=== PATIENT | female | born 1985 | race American Indian/Alaskan Native ===

== ENCOUNTER 2020-04-10 09:43 | Emergency (ER) | payer MEDICAID ==
--- NOTE | 2020-04-10 10:19 | Emergency Department Report ---
Blank Doc - Documentation Documentation: 34-year-old female that presents with left axilla abscess. This initial assessment/diagnostic orders/clinical plan/treatment(s) is/are subject to change based on patient's health status, clinical progression and re- assessment by fellow clinical providers in the ED. Further treatment and workup at subsequent clinical providers discretion. Patient/guardians urged not to elope from the ED as their condition may be serious if not clinically assessed and managed. Initial orders include: 1- Patient sent to [facility] for further evaluation and treatment 2- I/D
[2020-04-10] MEDS ORDERED: LIDOCAINE-MPF (1%) 10 MG/1 ML VIAL 5 ML INFILTRATI ONE (11:07)
[2020-04-10] MEDS ORDERED: oxyCODONE /ACETAMINOPHEN 5-325MG TAB PO ONE (11:13)
--- NOTE | 2020-04-10 11:15 | Emergency Department Report ---
HPI - General Chief Complaint: Skin/Abscess/Foreign Body Time Seen by Provider: 04/10/20 10:05 - HPI HPI: 34-year-old female presents with a 3-day history of a boil to the left armpit. It is tender and swollen. No fever. She has a history of the same thing in the right armpit from about 6 months ago. No bleeding or drainage. She has not taken anything for her symptoms prior to presentation. No past medical history. ED Past Medical Hx - Past Medical History Previous Medical History?: No - Surgical History Past Surgical History?: No - Social History Smoking Status: Never Smoker Substance Use Type: None - Medications Home Medications: Home Medications Medication Instructions Recorded Confirmed Last Taken Type HYDROcodone/APAP 5-325 [[place] 1 each PO Q6HR PRN #8 tablet 04/10/20 Unknown Rx 5/325] Sulfamethoxazole/Trimethoprim 1 each PO BID #14 tablet 04/10/20 Unknown Rx [Bactrim DS TAB] ED Review of Systems ROS: Stated complaint: LEFT ARMPIT BOIL Other details as noted in HPI Comment: All other systems reviewed and negative Constitutional: denies: chills, fever Musculoskeletal: denies: joint swelling, arthralgia Skin: lesions (left axillary abscess) Neurological: denies: numbness, paresthesias Physical Exam - Physical Exam Vital Signs: Vital Signs 04/10/20 09:48 Temperature 99.2 F Pulse Rate 100 H Respiratory 16 Rate Blood Pressure 136/86 [Right] O2 Sat by Pulse 100 Oximetry Physical Exam: GENERAL: The patient is well-developed well-nourished. HENT: Normocephalic. Atraumatic. Patient has moist mucous membranes. EYES: Extraocular motions are intact. NECK: Supple. Trachea is midline. CHEST/LUNGS: Clear to auscultation. There is no respiratory distress noted. HEART/CARDIOVASCULAR: Regular. There is no tachycardia. SKIN: Skin is warm and dry. There is a left tender and fluctuant axillary abscess consistent with hidradenitis suppurativa. No surrounding erythema. No current bleeding or discharge. NEURO: The patient is awake, alert, and oriented. The patient is cooperative. Normal speech. MUSCULOSKELETAL: There is tenderness to palpation to the left axilla where the patient has an abscess. ED Course Vital Signs 04/10/20 09:48 Temperature 99.2 F Pulse Rate 100 H Respiratory 16 Rate Blood Pressure 136/86 [Right] O2 Sat by Pulse 100 Oximetry - I & D Left Arm Type of Procedure: Simple Site: left axilla Blade Size: 11 I & D Procedure: betadine prep, sterile drapes applied, sterile dressing applied ED Medical Decision Making - Medical Decision Making Patient presents with a left axillary abscess or hidradenitis suppurtiva. An incision and drainage was performed with about 8 cc of purulent return. There was not enough room for packing to be placed. The patient was placed on antibiotics and given a prescription for pain medication. She will continue to use warm compresses to try and express any further infection. She will return to the ER with any worsening of her symptoms or any acute distress. Critical Care Time: No Critical care attestation.: If time is entered above; I have spent that time in minutes in the direct care of this critically ill patient, excluding procedure time. ED Disposition Clinical Impression: Hidradenitis suppurativa of left axilla Disposition: TO HOME OR SELFCARE Is pt being admited?: No Condition: Stable Instructions: Abscess Incision and Drainage (ED), Abscess (ED) Additional Instructions: Please follow-up with a primary care physician in the next few days. Use warm compresses to try and express any further infection from the abscess. Take the antibiotics as prescribed. Return to the emergency department with any worsening of your symptoms or any acute distress. You have been prescribed a medication that is sedating and therefore should not be taken prior to driving, working, and responsible for children and in no way should be mixed with alcohol of any quantity. Prescriptions: Sulfamethoxazole/Trimethoprim [Bactrim DS TAB] 1 each PO BID #14 tablet HYDROcodone/APAP 5-325 [[place] 5/325] 1 each PO Q6HR PRN #8 tablet PRN Reason: Pain Referrals: PRIMARY CARE, [Primary Care Provider] - 2-3 Days Forms: Work/School Release Form(ED) Time of Disposition: 11:31
[2020-04-10 13:57] VITALS: BP 136/86
== END 2020-04-10 12:07 | disposition home or self-care (01) ==
LOC: ED 09:43
DX: L73.2 Hidradenitis suppurativa (principal); L02.412 Cutaneous abscess of left axilla; Z79.899 Other long term (current) drug therapy
CPT/HCPCS: 99282

== ENCOUNTER 2020-07-18 23:21 | Emergency (ER) | payer MEDICAID ==
[2020-07-19 00:45] VITALS: BP 135/84
[2020-07-19] MEDS ORDERED: diphenhydrAMINE 25 MG CAP PO ONE (02:45)
[2020-07-19] MEDS ORDERED: ACETAMINOPHEN 500 MG TAB PO ONE (02:45)
[2020-07-19] MEDS ORDERED: dexAMETHasone 20 MG/5 ML VIAL IM ONE (02:45)
[2020-07-19] MEDS ORDERED: METOCLOPRAMIDE 10 MG TAB PO ONE (02:45)
--- NOTE | 2020-07-19 03:05 | Emergency Department Report ---
ED Headache HPI - General Chief Complaint: Headache Stated Complaint: HEADACHE/RT ARM PAIN Time Seen by Provider: 07/19/20 02:34 - History of Present Illness Initial Comments: Patient is a 34-year-old female with a history of chronic migraine headaches who presents for headache for the past 3 days. Patient is pending follow-up with PCP however appointment is 1 week away. Patient was treated 10 days ago in ED and prescribed Fioricet which she states works for her headaches but she is out of medication. Headache is rated at 5/10 frontal radiating to sinus with pressure. There is no fevers or chills. This is usual location and duration and intensity of her headaches. There is no nausea vomiting. No photophobia no dizziness or lightheadedness there is been no fever or chills. Symptoms are exacerbated by activity and movement. Symptoms are relieved by Fioricet as needed. Allergies/Adverse Reactions: Allergies No Known Allergies Allergy (Unverified 04/10/20 09:47) Home Medications: Ambulatory Orders HYDROcodone/APAP 5-325 [[place] 5/325] 1 each PO Q6HR PRN #8 tablet 04/10/20 Sulfamethoxazole/Trimethoprim [Bactrim DS TAB] 1 each PO BID #14 tablet 04/10/20 Amoxicillin [Trimox CAP] 500 mg PO Q8H #30 capsule 07/07/20 Benzonatate [Tessalon Perles] 100 mg PO Q8HR #30 capsule 07/07/20 Ibuprofen [Motrin] 600 mg PO Q8H PRN #30 tablet 07/07/20 methylPREDNISolone [Medrol 4MG DOSEPAK (21 tabs)] 4 mg PO DAILY #21 tab.ds.pk 07/07/20 Butalb/Acetamin/Caff 50-325-40 [Fioricet 50-325-40] 1 - 2 tab PO Q6HR PRN #12 tab 07/19/20 Metoclopramide [Reglan] 10 mg PO ACHS PRN #30 tablet 07/19/20 diphenhydrAMINE [Benadryl CAP] 25 mg PO Q8HR PRN #30 capsule 07/19/20 ED Review of Systems ROS: Stated complaint: HEADACHE/RT ARM PAIN Other details as noted in HPI Constitutional: denies: chills, fever Eyes: denies: eye pain, eye discharge, vision change ENT: as per HPI. denies: ear pain, throat pain, dental pain, congestion Respiratory: denies: cough, shortness of breath, wheezing Cardiovascular: denies: chest pain, palpitations Endocrine: no symptoms reported Gastrointestinal: denies: abdominal pain, nausea, diarrhea Genitourinary: as per HPI Musculoskeletal: denies: back pain, joint swelling, arthralgia Skin: denies: rash, lesions Neurological: headache. denies: weakness, numbness, paresthesias, confusion, vertigo Psychiatric: denies: anxiety, depression Hematological/Lymphatic: denies: easy bleeding, easy bruising ED Past Medical Hx - Past Medical History Previous Medical History?: Yes Hx Headaches / Migraines: Yes - Surgical History Past Surgical History?: No - Social History Smoking Status: Never Smoker Substance Use Type: None - Medications Home Medications: Home Medications Medication Instructions Recorded Confirmed Last Taken Type HYDROcodone/APAP 5-325 [[place] 1 each PO Q6HR PRN #8 tablet 04/10/20 Unknown Rx 5/325] Sulfamethoxazole/Trimethoprim 1 each PO BID #14 tablet 04/10/20 Unknown Rx [Bactrim DS TAB] Amoxicillin [Trimox CAP] 500 mg PO Q8H #30 capsule 07/07/20 Unknown Rx Benzonatate [Tessalon Perles] 100 mg PO Q8HR #30 capsule 07/07/20 Unknown Rx Ibuprofen [Motrin] 600 mg PO Q8H PRN #30 tablet 07/07/20 Unknown Rx methylPREDNISolone [Medrol 4MG 4 mg PO DAILY #21 tab.ds.pk 07/07/20 Unknown Rx DOSEPAK (21 tabs)] Butalb/Acetamin/Caff 50-325-40 1 - 2 tab PO Q6HR PRN #12 tab 07/19/20 Unknown Rx [Fioricet 50-325-40] Metoclopramide [Reglan] 10 mg PO ACHS PRN #30 tablet 07/19/20 Unknown Rx diphenhydrAMINE [Benadryl CAP] 25 mg PO Q8HR PRN #30 capsule 07/19/20 Unknown Rx ED Physical Exam - General Limitations: No Limitations General appearance: alert, in no apparent distress - Head Head exam: Present: normocephalic, normal inspection - Eye Eye exam: Present: normal appearance, PERRL, EOMI Pupils: Present: normal accommodation - ENT ENT exam: Present: normal orophraynx, mucous membranes moist, TM's normal bilaterally, normal external ear exam - Neck Neck exam: Present: normal inspection, full ROM. Absent: tenderness, meningismus, lymphadenopathy - Respiratory Respiratory exam: Present: normal lung sounds bilaterally. Absent: respiratory distress, wheezes, stridor, chest wall tenderness - Cardiovascular Cardiovascular Exam: Present: regular rate, normal rhythm, normal heart sounds. Absent: systolic murmur, diastolic murmur, rubs, gallop - GI/Abdominal GI/Abdominal exam: Present: soft, normal bowel sounds - Rectal Rectal exam: Present: deferred - Extremities Exam Extremities exam: Present: normal inspection, full ROM. Absent: tenderness - Back Exam Back exam: Present: normal inspection, full ROM. Absent: tenderness, CVA tenderness (R), CVA tenderness (L) - Neurological Exam Neurological exam: Present: alert, oriented X3, CN II-XII intact, normal gait, reflexes normal. Absent: motor sensory deficit - Expanded Neurological Exam Expanded Patient oriented to: Present: person, place, time Speech: Present: fluid speech Cranial nerves: EOM's Intact: Normal Cerebellar function: [place]: Normal Motor strength exam: RUE: 5, LUE: 5, RLE: 5, LLE: 5 DTR: ankle (R): 2+, ankle (L): 2+ Best Eye Response ([place]): (4) open spontaneously Best Motor Response ([place]): (6) obeys commands Best Verbal Response ([place]): (5) oriented [place] Total: 15 - Psychiatric Psychiatric exam: Present: normal affect, normal mood - Skin Skin exam: Present: warm, dry, intact, normal color. Absent: rash ED Course Vital Signs 07/19/20 00:29 Temperature 98.1 F Pulse Rate 82 Respiratory 12 Rate Blood Pressure 135/84 O2 Sat by Pulse 100 Oximetry ED Medical Decision Making - Medical Decision Making This is a acute on chronic headache , usual location and intensity, pain is improved with medications given in ed, plan refill fioricet, follow up with pcp and neurology as previously scheduled, pt verbalized agreement and understanding of discharge plan. Critical care attestation.: If time is entered above; I have spent that time in minutes in the direct care of this critically ill patient, excluding procedure time. ED Disposition Clinical Impression: Headache Qualifiers: Headache type: unspecified Headache chronicity pattern: acute headache Intractability: not intractable Qualified Code(s): R51 - Headache Disposition: DC-01 TO HOME OR SELFCARE Is pt being admited?: No Does the pt Need Aspirin: No Condition: Stable Instructions: Acute Headache (ED) Additional Instructions: take medication as prescribed. Prescriptions: diphenhydrAMINE [Benadryl CAP] 25 mg PO Q8HR PRN #30 capsule PRN Reason: Headache Butalb/Acetamin/Caff 50-325-40 [Fioricet 50-325-40] 1 - 2 tab PO Q6HR PRN #12 tab PRN Reason: Headache Metoclopramide [Reglan] 10 mg PO ACHS PRN #30 tablet PRN Reason: Headache Referrals: NIKKO HOLLINS MD [Staff Physician] - 3-5 Days PAXTON CHRIS MD [Referring] - 3-5 Days Forms: Work/School Release Form(ED) Time of Disposition: 03:13
== END 2020-07-19 03:40 | disposition home or self-care (01) ==
LOC: ED 23:21
DX: R51 Headache (principal); Z98.890 Other specified postprocedural states; Z79.899 Other long term (current) drug therapy
CPT/HCPCS: 96372; 99282; J1100

== ENCOUNTER 2020-12-18 03:05 | Emergency (ER) | payer MEDICAID ==
[2020-12-18 03:23] VITALS: BP 95/71
--- NOTE | 2020-12-18 03:25 | Emergency Department Report ---
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 Patient denies fall injury or trauma. However pain is described as burning tingling rated at 4/10. Pain is exacerbated by lifting or reaching there is no numbness or paralysis. Pain has awaken patient from sleep for the past 2 days. - Related Data Previous Rx's Medication Instructions Recorded Last Taken Type HYDROcodone/APAP 5-325 [[place] 1 each PO Q6HR PRN #8 tablet 04/10/20 Unknown Rx 5/325] Sulfamethoxazole/Trimethoprim 1 each PO BID #14 tablet 04/10/20 Unknown Rx [Bactrim DS TAB] Amoxicillin [Trimox CAP] 500 mg PO Q8H #30 capsule 07/07/20 Unknown Rx Benzonatate [Tessalon Perles] 100 mg PO Q8HR #30 capsule 07/07/20 Unknown Rx Ibuprofen [Motrin] 600 mg PO Q8H PRN #30 tablet 07/07/20 Unknown Rx methylPREDNISolone [Medrol 4MG 4 mg PO DAILY #21 tab.ds.pk 07/07/20 Unknown Rx DOSEPAK (21 tabs)] Butalb/Acetamin/Caff 50-325-40 1 - 2 tab PO Q6HR PRN #12 tab 07/19/20 Unknown Rx [Fioricet 50-325-40] Metoclopramide [Reglan] 10 mg PO ACHS PRN #30 tablet 07/19/20 Unknown Rx diphenhydrAMINE [Benadryl CAP] 25 mg PO Q8HR PRN #30 capsule 07/19/20 Unknown Rx Cyclobenzaprine HCl [Flexeril 5 MG 10 mg PO TID PRN #30 tab 12/18/20 Unknown Rx TAB] Menthol/Camphor [[place] 1 applicatio TP QID PRN #1 tube 12/18/20 Unknown Rx Ointment] Naproxen 500 mg PO BID PRN #30 tablet 12/18/20 Unknown Rx Allergies Allergy/AdvReac Type Severity Reaction Status Date / Time No Known Allergies Allergy Verified 12/18/20 03:18 ED Review of Systems ROS: Stated complaint: RIGHT ARM PAIN Other details as noted in HPI Constitutional: denies: chills, fever Eyes: denies: eye pain, eye discharge, vision change ENT: denies: ear pain, throat pain Respiratory: denies: cough, shortness of breath, wheezing Cardiovascular: denies: chest pain, palpitations Endocrine: no symptoms reported Gastrointestinal: denies: abdominal pain, nausea, diarrhea Genitourinary: denies: urgency, dysuria, discharge Musculoskeletal: myalgia, other (neck pain ) Skin: denies: rash, lesions Neurological: denies: headache, weakness, paresthesias Psychiatric: denies: anxiety, depression Hematological/Lymphatic: as per HPI ED Past Medical Hx - Past Medical History Previous Medical History?: Yes Hx Headaches / Migraines: Yes - Surgical History Past Surgical History?: No - Social History Smoking Status: Never Smoker Substance Use Type: None - Medications Home Medications: Home Medications Medication Instructions Recorded Confirmed Last Taken Type HYDROcodone/APAP 5-325 [[place] 1 each PO Q6HR PRN #8 tablet 04/10/20 Unknown Rx 5/325] Sulfamethoxazole/Trimethoprim 1 each PO BID #14 tablet 04/10/20 Unknown Rx [Bactrim DS TAB] Amoxicillin [Trimox CAP] 500 mg PO Q8H #30 capsule 07/07/20 Unknown Rx Benzonatate [Tessalon Perles] 100 mg PO Q8HR #30 capsule 07/07/20 Unknown Rx Ibuprofen [Motrin] 600 mg PO Q8H PRN #30 tablet 07/07/20 Unknown Rx methylPREDNISolone [Medrol 4MG 4 mg PO DAILY #21 tab.ds.pk 07/07/20 Unknown Rx DOSEPAK (21 tabs)] Butalb/Acetamin/Caff 50-325-40 1 - 2 tab PO Q6HR PRN #12 tab 07/19/20 Unknown Rx [Fioricet 50-325-40] Metoclopramide [Reglan] 10 mg PO ACHS PRN #30 tablet 07/19/20 Unknown Rx diphenhydrAMINE [Benadryl CAP] 25 mg PO Q8HR PRN #30 capsule 07/19/20 Unknown Rx Cyclobenzaprine HCl [Flexeril 5 MG 10 mg PO TID PRN #30 tab 12/18/20 Unknown Rx TAB] Menthol/Camphor [[place] 1 applicatio TP QID PRN #1 tube 12/18/20 Unknown Rx Ointment] Naproxen 500 mg PO BID PRN #30 tablet 12/18/20 Unknown Rx ED Physical Exam - General Limitations: No Limitations General appearance: alert, in no apparent distress - Head Head exam: Present: atraumatic, normocephalic - Eye Eye exam: Present: PERRL, EOMI Pupils: Present: normal accommodation - ENT ENT exam: Present: mucous membranes moist - Neck Neck exam: Present: tenderness (right posterior lateral neck muscle tenderness to deep palpation no posterior vertebral point tenderness, rom intact and unrestricted to all sánchez ), full ROM - Respiratory Respiratory exam: Present: normal lung sounds bilaterally, chest wall tenderness. Absent: respiratory distress, wheezes, stridor - Cardiovascular Cardiovascular Exam: Present: regular rate, normal rhythm, normal heart sounds. Absent: systolic murmur, diastolic murmur, rubs, gallop - GI/Abdominal GI/Abdominal exam: Present: soft, normal bowel sounds. Absent: distended, tenderness, guarding, rebound, rigid, bruit, hernia - Rectal Rectal exam: Present: deferred - Extremities Exam Extremities exam: Present: normal inspection, full ROM, normal capillary refill - Expanded Upper Extremity Exam Right Shoulder Exam: Present: normal inspection, full ROM. Absent: tenderness Upper Arm exam: Present: normal inspection, full ROM. Absent: tenderness, swelling, crepidus Elbow exam: Present: full ROM, pain w/ pronation/supination. Absent: tenderness, swelling, ecchymosis, crepidus, tenderness over radial head Forearm Wrist exam: Present: full ROM. Absent: tenderness, swelling Hand Wrist exam: Present: normal inspection, full ROM. Absent: tenderness, swelling Neuro motor exam: Present: wrist extension intact, thumb opposition intact, thumb IP flexion intact, thumb adduction intact, fingers 2-5 abduction intact Neurosensory exam: Present: radial nerve intact - Back Exam Back exam: Present: normal inspection, full ROM. Absent: tenderness, vertebral tenderness - Neurological Exam Neurological exam: Present: alert, oriented X3, CN II-XII intact, normal gait, reflexes normal. Absent: motor sensory deficit - Expanded Neurological Exam Expanded Patient oriented to: Present: person, place, time Speech: Present: fluid speech Sensory exam: Upper Extremity Light Touch: Normal, Upper Extremity Pin Prick: Normal, Upper Extremity Temperature: Normal Motor strength exam: RUE: 5, LUE: 5, RLE: 5, LLE: 5 DTR: bicep (R): 2+, bicep (L): 2+ Best Eye Response ([place]): (4) open spontaneously Best Motor Response ([place]): (6) obeys commands Best Verbal Response ([place]): (5) oriented [place] Total: 15 - Psychiatric Psychiatric exam: Present: normal affect, normal mood - Skin Skin exam: Present: warm, dry, intact, normal color. Absent: rash ED Medical Decision Making - Medical Decision Making this is an neck muscle strain, plan, Nsaids, muscle relaxant, and analgesic balm, neck and shoulder exercises. pt will follow up with pcp in 2-3 days. pt verbalized agreement and understanding of discharge plan. Critical care attestation.: If time is entered above; I have spent that time in minutes in the direct care of this critically ill patient, excluding procedure time. ED Disposition Clinical Impression: Neck muscle strain Qualifiers: Encounter type: initial encounter Qualified Code(s): S16.1XXA - Strain of muscle, fascia and tendon at neck level, initial encounter Disposition: TO HOME OR SELFCARE Is pt being admited?: No Does the pt Need Aspirin: No Condition: Stable Instructions: Cervical Strain and Sprain Rehab-SportsMed Additional Instructions: use moist heat therapy as directed Prescriptions: Cyclobenzaprine HCl [Flexeril 5 MG TAB] 10 mg PO TID PRN #30 tab PRN Reason: Muscle Spasm Naproxen 500 mg PO BID PRN #30 tablet PRN Reason: Pain Menthol/Camphor [[place] Ointment] 1 applicatio TP QID PRN #1 tube PRN Reason: pain Referrals: PRIMARY CARE, [Primary Care Provider] - 3-5 Days ARNOLDO METZ MD [Staff Physician] - 3-5 Days Forms: Work/School Release Form(ED) Time of Disposition: 03:38
== END 2020-12-18 04:00 | disposition home or self-care (01) ==
LOC: ED 03:05
DX: S16.1XXA Strain of muscle, fascia and tendon at neck level, initial encounter (principal); G43.909 Migraine, unspecified, not intractable, without status migrainosus; Z79.899 Other long term (current) drug therapy; X58.XXXA Exposure to other specified factors, initial encounter; Y93.89 Activity, other specified; Y92.89 Other specified places as the place of occurrence of the external cause; Y99.8 Other external cause status
CPT/HCPCS: 99282

== ENCOUNTER 2021-04-10 04:09 | Emergency (ER) | payer MEDICAID ==
[2021-04-10 04:34] VITALS: BP 122/79
[2021-04-10 04:57] LABS: Basophils % (Auto) 0.6 % (0.0-1.8); Eosinophils # (Auto) 0.2 K/mm3 (0.0-0.4); Eosinophils % (Auto) 2.4 % (0.0-4.3); Hematocrit 40.7 % (30.3-42.9); Hemoglobin 14.2 gm/dl (10.1-14.3); Lymphocytes # (Auto) 2.8 K/mm3 (1.2-5.4); Lymphocytes % (Auto) 44.7 % (13.4-35.0); Mean Corpuscular HGB Conc 35 % (30-34); Mean Corpuscular Volume 103 fl (79-97); Monocytes # (Auto) 0.6 K/mm3 (0.0-0.8); Monocytes % (Auto) 9.4 % (0.0-7.3); Platelet Count 267 K/mm3 (140-440); Red Blood Count 3.94 M/mm3 (3.65-5.03); Red Cell Distribution Width 13.1 % (13.2-15.2)
[2021-04-10 05:28] LABS: Alanine Aminotransferase 20 units/L (7-56); Albumin 4.7 g/dL (3.9-5); Blood Urea Nitrogen 17 mg/dL (7-17); Calcium 9.7 mg/dL (8.4-10.2); Hemolysis Index 3
[2021-04-10 05:29] LABS: BUN/Creatinine Ratio 24
[2021-04-10] MEDS ORDERED: HYDROcodone/ACETAMINOPHEN 5-325 MG TAB PO STA (06:07)
--- NOTE | 2021-04-10 06:23 | Emergency Department Report ---
ED General Adult HPI - General Chief complaint: Headache Stated complaint: EAR/HEADACHE/COLD SX Time Seen by Provider: 04/10/21 05:48 Source: patient Mode of arrival: Ambulatory Limitations: No Limitations - History of Present Illness Initial comments: 35-year-old -[place] female with past medical history of migraine presents emerged department complaining of a few week history of episodic headaches off and on associated with dull throbbing pain but no presyncope or or blurred vision occasional scotomas noted. She also been experiencing cough and and congestion with scant mucoid mucus production and pain radiating through to her back in a wheezy type sensation. -: Gradual Location: head, chest, back Radiation: non-radiation Quality: aching Consistency: constant Improves with: none Associated Symptoms: cough, nausea/vomiting (Nausea but no vomiting). denies: fever/chills, loss of appetite, malaise, rash, syncope, weakness Treatments Prior to Arrival: none - Related Data Previous Rx's Medication Instructions Recorded Last Taken Type HYDROcodone/APAP 5-325 [[place] 1 each PO Q6HR PRN #8 tablet 04/10/20 Unknown Rx 5/325] Sulfamethoxazole/Trimethoprim 1 each PO BID #14 tablet 04/10/20 Unknown Rx [Bactrim DS TAB] Amoxicillin [Trimox CAP] 500 mg PO Q8H #30 capsule 07/07/20 Unknown Rx Benzonatate [Tessalon Perles] 100 mg PO Q8HR #30 capsule 07/07/20 Unknown Rx Ibuprofen [Motrin] 600 mg PO Q8H PRN #30 tablet 07/07/20 Unknown Rx methylPREDNISolone [Medrol 4MG 4 mg PO DAILY #21 tab.ds.pk 07/07/20 Unknown Rx DOSEPAK (21 tabs)] Butalb/Acetamin/Caff 50-325-40 1 - 2 tab PO Q6HR PRN #12 tab 07/19/20 Unknown Rx [Fioricet 50-325-40] Metoclopramide [Reglan] 10 mg PO ACHS PRN #30 tablet 07/19/20 Unknown Rx diphenhydrAMINE [Benadryl CAP] 25 mg PO Q8HR PRN #30 capsule 07/19/20 Unknown Rx Cyclobenzaprine HCl [Flexeril 5 MG 10 mg PO TID PRN #30 tab 12/18/20 Unknown Rx TAB] Menthol/Camphor [Start [place] 1 applicatio TP QID PRN #1 tube 12/18/20 Unknown Rx Ointment] Naproxen 500 mg PO BID PRN #30 tablet 12/18/20 Unknown Rx Albuterol Mdi (or & Nicu Only) 2 puff IH QID PRN #1 inhalation 04/10/21 Unknown Rx [ProAir HFA Inhaler] Benzonatate [Tessalon Perles] 100 mg PO Q8HR #20 capsule 04/10/21 Unknown Rx predniSONE [Deltasone] 50 mg PO QDAY #5 tab 04/10/21 Unknown Rx Allergies Allergy/AdvReac Type Severity Reaction Status Date / Time No Known Allergies Allergy Verified 04/10/21 04:30 ED Review of Systems ROS: Stated complaint: EAR/HEADACHE/COLD SX Other details as noted in HPI Comment: All other systems reviewed and negative ED Past Medical Hx - Past Medical History Previous Medical History?: No Hx Headaches / Migraines: Yes - Surgical History Past Surgical History?: No - Social History Smoking Status: Never Smoker Substance Use Type: None - Medications Home Medications: Home Medications Medication Instructions Recorded Confirmed Last Taken Type HYDROcodone/APAP 5-325 [[place] 1 each PO Q6HR PRN #8 tablet 04/10/20 Unknown Rx 5/325] Sulfamethoxazole/Trimethoprim 1 each PO BID #14 tablet 04/10/20 Unknown Rx [Bactrim DS TAB] Amoxicillin [Trimox CAP] 500 mg PO Q8H #30 capsule 07/07/20 Unknown Rx Benzonatate [Tessalon Perles] 100 mg PO Q8HR #30 capsule 07/07/20 Unknown Rx Ibuprofen [Motrin] 600 mg PO Q8H PRN #30 tablet 07/07/20 Unknown Rx methylPREDNISolone [Medrol 4MG 4 mg PO DAILY #21 tab.ds.pk 07/07/20 Unknown Rx DOSEPAK (21 tabs)] Butalb/Acetamin/Caff 50-325-40 1 - 2 tab PO Q6HR PRN #12 tab 07/19/20 Unknown Rx [Fioricet 50-325-40] Metoclopramide [Reglan] 10 mg PO ACHS PRN #30 tablet 07/19/20 Unknown Rx diphenhydrAMINE [Benadryl CAP] 25 mg PO Q8HR PRN #30 capsule 07/19/20 Unknown Rx Cyclobenzaprine HCl [Flexeril 5 MG 10 mg PO TID PRN #30 tab 12/18/20 Unknown Rx TAB] Menthol/Camphor [Start [place] 1 applicatio TP QID PRN #1 tube 12/18/20 Unknown Rx Ointment] Naproxen 500 mg PO BID PRN #30 tablet 12/18/20 Unknown Rx Albuterol Mdi (or & Nicu Only) 2 puff IH QID PRN #1 inhalation 04/10/21 Unknown Rx [ProAir HFA Inhaler] Benzonatate [Tessalon Perles] 100 mg PO Q8HR #20 capsule 04/10/21 Unknown Rx predniSONE [Deltasone] 50 mg PO QDAY #5 tab 04/10/21 Unknown Rx ED Physical Exam - General Limitations: No Limitations General appearance: alert, in no apparent distress - Head Head exam: Present: atraumatic, normocephalic - Eye Eye exam: Present: normal appearance, PERRL, EOMI Pupils: Present: normal accommodation - ENT ENT exam: Present: mucous membranes moist, other (Nasal congestion bilaterally clear with some swelling to the left turbinate.) - Neck Neck exam: Present: normal inspection, full ROM - Respiratory Respiratory exam: Present: normal lung sounds bilaterally, rhonchi. Absent: respiratory distress - Cardiovascular Cardiovascular Exam: Present: regular rate, normal rhythm. Absent: systolic murmur, diastolic murmur, rubs, gallop - GI/Abdominal GI/Abdominal exam: Present: soft, normal bowel sounds - Extremities Exam Extremities exam: Present: normal inspection, normal capillary refill - Back Exam Back exam: Present: normal inspection. Absent: CVA tenderness (R), CVA tenderness (L) - Neurological Exam Neurological exam: Present: alert, oriented X3, CN II-XII intact - Psychiatric Psychiatric exam: Present: normal affect, normal mood - Skin Skin exam: Present: warm, dry, intact, normal color. Absent: rash ED Course Vital Signs 04/10/21 04:33 Temperature 99.1 F Pulse Rate 104 H Respiratory 18 Rate Blood Pressure 122/79 O2 Sat by Pulse 100 Oximetry ED Medical Decision Making - Lab Data Result diagrams: 04/10/21 04:37 04/10/21 04:37 - Radiology Data Radiology results: report reviewed No acute processes - Medical Decision Making Cough This patient presents with acute cough, most consistent with bronchitis. Differential diagnosis includes bronchitis, pneumonia, asthma, hyperreactive airway disease, sinusitis. Presentation not consistent with acute bacterial pneumonia, influenza, asthma, transient airway hyperresponsiveness. Presentation not consistent with chronic causes of cough (including GERD, asthma, postnasal discharge, medication side effect, CHF, lung cancer or mass). Plan: Normal CXR, supportive care, reassess Headache this patient presents with a headache most consistent with general headache. Differential diagnosis includes migraine versus tension type headache. No heada kane red flags. Neurologic exam without evidence of meningismus, focal neurologic findings.Based on the patient's history and physical there is very low clinical suspicion for significant intracranial pathology. The headache was NOT sudden onset, NOT maximal at onset, there are NO neurologic findings, the patient does NOT have a fever, the patient does NOT have any jaw claudication, the patient does NOT endorse a clotting disorder, patient DENIES any trauma or eye pain and the headache is NOT associated with dizziness or ataxia. Presentation not consistent with acute intracranial bleed to include SAH (lack of risk factors, headache history). Presentation not consistent with acute SPLITTING MACHINE [employer]EDER infection to include meningitis or brain abscess, Temporal arteritis unlikely, as is acute angle closure glaucoma given history and physical findings. Presentation not consistent with other acute, emergent causes of headache at this time. Plan to treat symptomatically with pain medication. No indication for imaging/LP at this time. Plan: pain medication, , serial reassessment Critical care attestation.: If time is entered above; I have spent that time in minutes in the direct care of this critically ill patient, excluding procedure time. ED Disposition Clinical Impression: Cephalalgia, Bronchitis Disposition: DC-01 TO HOME OR SELFCARE Is pt being admited?: No Does the pt Need Aspirin: No Condition: Stable Instructions: How to Use a Metered Dose Inhaler, Upper Respiratory Infection, Adult, [id number], Migraine Headache, Acute Bronchitis, Adult, Chronic Bronchitis (ED) Prescriptions: predniSONE [Deltasone] 50 mg PO QDAY #5 tab Albuterol Mdi (or & Nicu Only) [ProAir HFA Inhaler] 2 puff IH QID PRN #1 inhalation PRN Reason: Shortness Of Breath Benzonatate [Tessalon Perles] 100 mg PO Q8HR #20 capsule Referrals: PRIMARY CARE, [Primary Care Provider] - 3-5 Days [facility] [Provider Group] - 3-5 Days
--- NOTE | 2021-04-10 06:26 | XRay Report ---
CHEST 2 VIEWS INDICATION / CLINICAL INFORMATION: cough and sob. COMPARISON: 07/07/2020 FINDINGS: SUPPORT DEVICES: None. HEART / MEDIASTINUM: No significant abnormality. LUNGS / PLEURA: No significant pulmonary or pleural abnormality. No pneumothorax. ADDITIONAL FINDINGS: No significant additional findings. IMPRESSION: 1. No acute findings. No interval change. Signer Name: Abigail Doshi MD Signed: 04/10/2021 6:22 AM Workstation Name: [id number]
[2021-04-10 06:52] LABS: Bilirubin,Urine NEG (Negative); Blood,Urine SM (Negative); Color,Urine Yellow (Yellow); Protein,Urine <15 mg/dL mg/dL (Negative); Urobilinogen,Urine < 2.0 mg/dL (<2.0)
== END 2021-04-10 06:43 | disposition home or self-care (01) ==
LOC: ED 04:09
DX: J40 Bronchitis, not specified as acute or chronic (principal); R51.9 Headache, unspecified; Z79.899 Other long term (current) drug therapy
CPT/HCPCS: 36415; 71046; 80053; 81001; 85025

== ENCOUNTER 2021-04-26 04:35 | Emergency (ER) | payer MEDICAID ==
[2021-04-26 05:34] VITALS: BP 121/71
--- NOTE | 2021-04-26 06:25 | Emergency Department Report ---
HPI - General Chief Complaint: Abdominal Pain Time Seen by Provider: 04/26/21 06:22 - HPI HPI: This is a 35-year-old -[place] female who presents to the emergency department with a complaint of a frontal headache that she describes as a "migraine", as well as some right middle to upper abdominal pain, that have both going on for the past month week. It is associated with some nausea without vomiting. She denies any fever, vision change, slurred speech, numbness or paresthesias, focal/localized weakness, vaginal bleeding or discharge, dysuria, diarrhea or constipation. She has not taken anything for symptoms prior to presentation. Patient does admit to a history of recurrent headaches but denies the actual diagnosis of a migraine. She is a tobacco smoker, but denies any illicit drug use. No recent travel or sick contacts at home. Currently her headache is a 4 out of 10 in intensity. No abdominal pain at this time without palpation. No known aggravating or alleviating factors. ED Past Medical Hx - Past Medical History Previous Medical History?: Yes Hx Headaches / Migraines: Yes - Surgical History Past Surgical History?: No - Social History Smoking Status: Never Smoker Substance Use Type: None - Medications Home Medications: Home Medications Medication Instructions Recorded Confirmed Last Taken Type HYDROcodone/APAP 5-325 [[place] 1 each PO Q6HR PRN #8 tablet 04/10/20 Unknown Rx 5/325] Sulfamethoxazole/Trimethoprim 1 each PO BID #14 tablet 04/10/20 Unknown Rx [Bactrim DS TAB] Amoxicillin [Trimox CAP] 500 mg PO Q8H #30 capsule 07/07/20 Unknown Rx Benzonatate [Tessalon Perles] 100 mg PO Q8HR #30 capsule 07/07/20 Unknown Rx Ibuprofen [Motrin] 600 mg PO Q8H PRN #30 tablet 07/07/20 Unknown Rx methylPREDNISolone [Medrol 4MG 4 mg PO DAILY #21 tab.ds.pk 07/07/20 Unknown Rx DOSEPAK (21 tabs)] Butalb/Acetamin/Caff 50-325-40 1 - 2 tab PO Q6HR PRN #12 tab 07/19/20 Unknown Rx [Fioricet 50-325-40] Metoclopramide [Reglan] 10 mg PO ACHS PRN #30 tablet 07/19/20 Unknown Rx diphenhydrAMINE [Benadryl CAP] 25 mg PO Q8HR PRN #30 capsule 07/19/20 Unknown Rx Cyclobenzaprine HCl [Flexeril 5 MG 10 mg PO TID PRN #30 tab 12/18/20 Unknown Rx TAB] Menthol/Camphor [[place] 1 applicatio TP QID PRN #1 tube 12/18/20 Unknown Rx Ointment] Naproxen 500 mg PO BID PRN #30 tablet 12/18/20 Unknown Rx Benzonatate [Tessalon Perles] 100 mg PO Q8HR #20 capsule 04/10/21 Unknown Rx predniSONE [Deltasone] 50 mg PO QDAY #5 tab 04/10/21 Unknown Rx Albuterol Mdi (or & Nicu Only) 2 puff IH QID PRN #1 inhalation 04/26/21 Unknown Rx [ProAir HFA Inhaler] Ondansetron [Zofran Odt] 4 mg PO Q8HR PRN #15 tab.rapdis 04/26/21 Unknown Rx ED Review of Systems ROS: Stated complaint: RIGHT SIDE PAIN, CRAMP, CHEST PAIN,HEADACHE,COUGH Other details as noted in HPI Comment: All other systems reviewed and negative Constitutional: denies: chills, fever Eyes: denies: eye pain, vision change ENT: denies: ear pain, throat pain Respiratory: denies: cough, shortness of breath Cardiovascular: denies: chest pain, palpitations Gastrointestinal: abdominal pain, nausea. denies: vomiting Genitourinary: denies: dysuria, discharge Musculoskeletal: denies: back pain, arthralgia Skin: denies: rash, lesions Neurological: headache. denies: weakness, numbness, paresthesias Physical Exam - Physical Exam Vital Signs: Vital Signs 04/26/21 05:30 Temperature 99.1 F Pulse Rate 96 H Respiratory 18 Rate Blood Pressure 121/71 O2 Sat by Pulse 100 Oximetry Physical Exam: GENERAL: The patient is well-developed well-nourished. HENT: Normocephalic. Atraumatic. Patient has moist mucous membranes. EYES: Extraocular motions are intact. No nystagmus. NECK: Supple. Trachea is midline. CHEST/LUNGS: Clear to auscultation. There is no respiratory distress noted. HEART/CARDIOVASCULAR: Regular. There is no tachycardia. There is no murmur. ABDOMEN: Abdomen is soft. Mild right upper quadrant abdominal tenderness to palpation. No guarding. Patient has normal bowel sounds. There is no abdominal distention. SKIN: Skin is warm and dry. NEURO: The patient is awake, alert, and oriented. The patient is cooperative. The patient has no focal neurologic deficits. Normal speech. Cranial nerves II through XII grossly intact. MUSCULOSKELETAL: There is no tenderness or deformity. There is no limitation range of motion. ED Course Vital Signs 04/26/21 05:30 Temperature 99.1 F Pulse Rate 96 H Respiratory 18 Rate Blood Pressure 121/71 O2 Sat by Pulse 100 Oximetry ED Medical Decision Making - Lab Data Result diagrams: 04/26/21 05:49 04/26/21 05:49 Lab Results 04/26/21 04/26/21 04/26/21 Range/Units 05:49 05:49 05:58 WBC 7.1 (4.5-11.0) K/mm3 RBC 4.07 (3.65-5.03) M/mm3 Hgb 14.7 H (10.1-14.3) gm/dl Hct 41.8 (30.3-42.9) % MCV 103 H (79-97) fl MCH 36 H (28-32) pg MCHC 35 H (30-34) % RDW 13.5 (13.2-15.2) % Plt Count 248 (140-440) K/mm3 Lymph % (Auto) 24.0 (13.4-35.0) % [place] % (Auto) 6.2 (0.0-7.3) % Eos % (Auto) 0.5 (0.0-4.3) % Baso % (Auto) 0.6 (0.0-1.8) % Lymph # (Auto) 1.7 (1.2-5.4) K/mm3 [place] # (Auto) 0.4 (0.0-0.8) K/mm3 Eos # (Auto) 0.0 (0.0-0.4) K/mm3 Baso # (Auto) 0.0 (0.0-0.1) K/mm3 Seg Neutrophils % 68.7 (40.0-70.0) % Seg Neutrophils # 4.9 (1.8-7.7) K/mm3 Sodium 139 (137-145) mmol/L Potassium 4.0 (3.6-5.0) mmol/L Chloride 102.6 (98-107) mmol/L Carbon Dioxide 23 (22-30) mmol/L Anion Gap 17 mmol/L BUN 11 (7-17) mg/dL Creatinine 0.7 (0.6-1.2) mg/dL Estimated GFR > 60 ml/min BUN/Creatinine Ratio 16 % Glucose 102 H (65-100) mg/dL Calcium 9.3 (8.4-10.2) mg/dL Total Bilirubin 0.60 (0.1-1.2) mg/dL AST 17 (5-40) units/L ALT 16 (7-56) units/L Alkaline Phosphatase 58 (35-129) units/L Total Protein 7.7 (6.3-8.2) g/dL Albumin 4.4 (3.9-5) g/dL Albumin/Globulin Ratio 1.3 % Urine Color Yellow (Yellow) Urine Turbidity Clear (Clear) Urine pH 6.0 (5.0-7.0) Ur Specific [place] 1.015 (1.003-1.030) Urine Protein <15 mg/dl (Negative) mg/dL Urine Glucose (UA) Neg (Negative) mg/dL Urine Ketones Neg (Negative) mg/dL Urine Blood Mod (Negative) Urine Nitrite Neg (Negative) Urine Bilirubin Neg (Negative) Urine Urobilinogen < 2.0 (<2.0) mg/dL Ur Leukocyte Esterase Neg (Negative) Urine WBC (Auto) 1.0 (0.0-6.0) /HPF Urine RBC (Auto) 17.0 (0.0-6.0) /HPF U Epithel Cells (Auto) 2.0 (0-13.0) /HPF Urine Bacteria (Auto) 1+ (Negative) /HPF Urine Mucus Few /HPF Urine HCG, Qual (Negative) 04/26/21 Range/Units 05:58 WBC (4.5-11.0) K/mm3 RBC (3.65-5.03) M/mm3 Hgb (10.1-14.3) gm/dl Hct (30.3-42.9) % MCV (79-97) fl MCH (28-32) pg MCHC (30-34) % RDW (13.2-15.2) % Plt Count (140-440) K/mm3 Lymph % (Auto) (13.4-35.0) % [place] % (Auto) (0.0-7.3) % Eos % (Auto) (0.0-4.3) % Baso % (Auto) (0.0-1.8) % Lymph # (Auto) (1.2-5.4) K/mm3 [place] # (Auto) (0.0-0.8) K/mm3 Eos # (Auto) (0.0-0.4) K/mm3 Baso # (Auto) (0.0-0.1) K/mm3 Seg Neutrophils % (40.0-70.0) % Seg Neutrophils # (1.8-7.7) K/mm3 Sodium (137-145) mmol/L Potassium (3.6-5.0) mmol/L Chloride (98-107) mmol/L Carbon Dioxide (22-30) mmol/L Anion Gap mmol/L BUN (7-17) mg/dL Creatinine (0.6-1.2) mg/dL Estimated GFR ml/min BUN/Creatinine Ratio % Glucose (65-100) mg/dL Calcium (8.4-10.2) mg/dL Total Bilirubin (0.1-1.2) mg/dL AST (5-40) units/L ALT (7-56) units/L Alkaline Phosphatase (35-129) units/L Total Protein (6.3-8.2) g/dL Albumin (3.9-5) g/dL Albumin/Globulin Ratio % Urine Color (Yellow) Urine Turbidity (Clear) Urine pH (5.0-7.0) Ur Specific [place] (1.003-1.030) Urine Protein (Negative) mg/dL Urine Glucose (UA) (Negative) mg/dL Urine Ketones (Negative) mg/dL Urine Blood (Negative) Urine Nitrite (Negative) Urine Bilirubin (Negative) Urine Urobilinogen (<2.0) mg/dL Ur Leukocyte Esterase (Negative) Urine WBC (Auto) (0.0-6.0) /HPF Urine RBC (Auto) (0.0-6.0) /HPF U Epithel Cells (Auto) (0-13.0) /HPF Urine Bacteria (Auto) (Negative) /HPF Urine Mucus /HPF Urine HCG, Qual Negative (Negative) - Radiology Data Radiology results: image reviewed interpreted by me: Chest x-ray does not show any acute process. There are no pleural effusions, obvious pneumonia and there is no pneumothorax. No widened mediastinum Abdominal x-ray shows nonspecific nonobstructive bowel gas. No free air. - Medical Decision Making This patient presents with a 1 week history of intermittent frontal headache and some abdominal discomfort. On examination the patient does not have any focal, motor or sensory deficits and her cranial nerves are intact. The abdomen is soft, nondistended and nontoxic in appearance. Labs have been unremarkable including CBC, metabolic panel, urinalysis, and the patient is not . Chest x-ray does not show any pneumonia, pleural effusions, pneumothorax, widened mediastinum, or any other acute process. Abdominal x-ray shows nonspecific nonobstructive bowel gas, and no free air. Labs have been unremarkable throughout her ED course including being afebrile. Patient was given a Fioricet for her headache. She has been instructed to follow-up with primary care. She will return to the emergency department with any worsening of her symptoms or with any acute distress. Critical Care Time: No Critical care attestation.: If time is entered above; I have spent that time in minutes in the direct care of this critically ill patient, excluding procedure time. ED Disposition Clinical Impression: Intermittent abdominal pain, Intermittent headache, Nausea, Pelvic cramping Disposition: DC-01 TO HOME OR SELFCARE Is pt being admited?: No Condition: Stable Instructions: Nausea, Adult, Abdominal Pain, Adult, General Headache Without Cause, Abdominal Pain (ED) Additional Instructions: Please follow-up with your primary care physician in the next few days. Return to the emergency department with any worsening of your symptoms, new or concerning symptoms not addressed during this current emergency department visit, or with any acute distress. Prescriptions: Albuterol Mdi (or & Nicu Only) [ProAir HFA Inhaler] 2 puff IH QID PRN #1 inhalation PRN Reason: Shortness Of Breath Ondansetron [Zofran Odt] 4 mg PO Q8HR PRN #15 tab.rapdis PRN Reason: Nausea Referrals: PRIMARY CARE, [Primary Care Provider] - 2-3 Days Forms: Work/School Release Form(ED) Time of Disposition: 07:32
[2021-04-26 06:30] LABS: Bacteria,Urine 1+ /HPF (Negative); Bilirubin,Urine NEG (Negative); Blood,Urine MOD (Negative); Color,Urine Yellow (Yellow); Mucus,Urine FEW /HPF; Protein,Urine <15 mg/dL mg/dL (Negative); Urobilinogen,Urine < 2.0 mg/dL (<2.0)
[2021-04-26 06:34] LABS: Basophils % (Auto) 0.6 % (0.0-1.8); Eosinophils % (Auto) 0.5 % (0.0-4.3); Hematocrit 41.8 % (30.3-42.9); Hemoglobin 14.7 gm/dl (10.1-14.3); Lymphocytes # (Auto) 1.7 K/mm3 (1.2-5.4); Mean Corpuscular HGB Conc 35 % (30-34); Mean Corpuscular Volume 103 fl (79-97); Monocytes # (Auto) 0.4 K/mm3 (0.0-0.8); Monocytes % (Auto) 6.2 % (0.0-7.3); Platelet Count 248 K/mm3 (140-440); Red Blood Count 4.07 M/mm3 (3.65-5.03); Red Cell Distribution Width 13.5 % (13.2-15.2)
[2021-04-26 06:54] LABS: HCG Qualitative,Urine Negative (Negative)
[2021-04-26 07:17] LABS: Alanine Aminotransferase 16 units/L (7-56); Albumin 4.4 g/dL (3.9-5); Blood Urea Nitrogen 11 mg/dL (7-17); Calcium 9.3 mg/dL (8.4-10.2); Hemolysis Index 5
[2021-04-26 07:18] LABS: BUN/Creatinine Ratio 16
[2021-04-26] MEDS ORDERED: BUTALB/ACETAMINOPHEN/CAFFEINE TAB PO ONE (07:30)
--- NOTE | 2021-04-26 08:05 | XRay Report ---
Acute abdominal series with frontal chest 3 views INDICATION: Chest and abdominal pain IMPRESSION: The lungs are grossly clear. Nonobstructive bowel gas pattern. No free air appreciated. I ntrauterine device noted Signer Name: Brandon Sewell MD Signed: 04/26/2021 8:01 AM Workstation Name: [id number]
== END 2021-04-26 07:47 | disposition home or self-care (01) ==
LOC: ED 04:35
DX: R11.0 Nausea (principal); R51.9 Headache, unspecified; R10.2 Pelvic and perineal pain; R10.9 Unspecified abdominal pain; Z79.899 Other long term (current) drug therapy
CPT/HCPCS: 36415; 74022; 80053; 81001; 81025; 85025

== ENCOUNTER 2021-06-08 05:29 | Emergency (ER) | payer MEDICAID ==
[2021-06-08 06:53] VITALS: BP 146/80
== END 2021-06-08 07:50 ==
LOC: ED 05:29
DX: Z00.00 Encounter for general adult medical examination without abnormal findings (principal); Z53.21 Procedure and treatment not carried out due to patient leaving prior to being seen by health care provider

== ENCOUNTER 2021-07-31 22:35 | Emergency (ER) | payer MEDICAID ==
[2021-07-31] MEDS ORDERED: MORPHINE 4 MG/1 ML INJ IV ONE (23:53)
[2021-07-31] MEDS ORDERED: ONDANSETRON 4 MG/2 ML INJ IV ONE (23:53)
[2021-07-31] MEDS ORDERED: SODIUM CHLORIDE 0.9% 1000 ML 1,000 ML IV ONE (23:53)
--- NOTE | 2021-07-31 23:56 | Event Note ---
ED Screening Note Date of service: 07/31/21 Time: 23:54 ED Screening Note: Patient is a 35-year-old -[place]ish female with no past medical history who presents to the ED with complaint of acute onset persistent left lower quadrant abdominal pain, nausea, vomiting and melena for the last 4 days. Patient states that the pain is mild but constant in the left lower quadrant area. Patient denies vaginal bleeding, vaginal discharge, dizziness, syncope, low back pain, dysuria, urinary frequency and urgency, chest pain or shortness of breath, constipation, traumatic injury or fever and chills. This initial assessment/diagnostic orders/clinical plan/treatment(s) is/are subject to change based on patients health status, clinical progression and re- assessment by fellow clinical providers in the ED. Further treatment and workup at subsequent clinical providers discretion. Patient/guardian urged not to elope from the ED as their condition may be serious if not clinically assessed and managed. Initial orders include: CBC, CMP, lipase, UA, hCG serum, abdomen pelvis CT scan with contrast
[2021-08-01 00:38] LABS: Basophils % (Auto) 0.4 % (0.0-1.8); Eosinophils % (Auto) 0.3 % (0.0-4.3); Hemoglobin 15.2 gm/dl (10.1-14.3); Lymphocytes # (Auto) 1.5 K/mm3 (1.2-5.4); Lymphocytes % (Auto) 19.5 % (13.4-35.0); Mean Corpuscular HGB Conc 35 % (30-34); Mean Corpuscular Volume 103 fl (79-97); Monocytes # (Auto) 0.5 K/mm3 (0.0-0.8); Monocytes % (Auto) 5.7 % (0.0-7.3); Platelet Count 263 K/mm3 (140-440); Red Blood Count 4.26 M/mm3 (3.65-5.03); Red Cell Distribution Width 12.6 % (13.2-15.2)
[2021-08-01 00:52] LABS: Alanine Aminotransferase 17 units/L (7-56); Albumin 4.6 g/dL (3.9-5); Blood Urea Nitrogen 8 mg/dL (7-17); Calcium 10.1 mg/dL (8.4-10.2); Hemolysis Index 3
[2021-08-01 00:58] LABS: BUN/Creatinine Ratio 11
[2021-08-01 01:49] LABS: Bilirubin,Urine Negative (Negative); Blood,Urine 2+ (Negative); Color,Urine Straw (Yellow)
[2021-08-01 01:50] LABS: Protein,Urine <15 mg/dL mg/dL (Negative); Urobilinogen,Urine < 2.0 mg/dL (<2.0); WBC,Urine < 1.0 /HPF (0.0-6.0)
--- NOTE | 2021-08-01 02:20 | Cat Scan Report ---
CT ABDOMEN AND PELVIS WITH CONTRAST INDICATION: Pt complains of R.L.Q. abdominal pain CONTRAST: 100 cc Isovue-300 IV COMPARISON: None available. All CT scans at this location are performed using CT dose reduction for ALARA by means of automated e xposure control. FINDINGS: Lung bases are clear. No pneumoperitoneum is seen. No lymphadenopathy is noted. Tiny hepati c cyst is seen. Mild fatty infiltration of the liver is noted. Liver is enlarged and has a length of 20.3 cm. Spleen is not enlarged. No other masses are seen. No urinary obstructive changes are noted. Gallbladder and bile ducts appear within normal limits. No inflammatory changes are seen. No evidence of bowel obstruction is noted. Minimal colonic diverticulosis is seen without evidence of diverticul itis. Appendix appears within normal limits. IUD is seen in appropriate position in the uterine fundu s. Small right ovarian cyst measuring only 14 mm is thought likely physiologic. IMPRESSION: No acute abnormalities are seen Signer Name: Bhaskar Knutson MD Signed: 08/01/2021 2:16 AM Workstation Name: [id number]
--- NOTE | 2021-08-01 03:23 | Emergency Department Report ---
ED Abdominal Pain HPI - General Chief Complaint: Abdominal Pain Stated Complaint: STOMACH PAIN BLACK STOOL VOMITING Source: patient Mode of arrival: Ambulatory Limitations: No Limitations - History of Present Illness Initial Comments: Patient is a 35-year-old -Wallis[place] female with no past medical history who presents to the ED with complaint of acute onset persistent left lower quadrant abdominal pain, nausea, vomiting and melena for the last 4 days. Patient states that the pain is mild but constant in the left lower quadrant area. Patient states that she has been taking with Pepto-Bismol for the pain with no relief. Patient denies vaginal bleeding, vaginal discharge, dizziness, syncope, low back pain, dysuria, urinary frequency and urgency, chest pain or shortness of breath, constipation, traumatic injury or fever and chills. MD Complaint: abdominal pain -: Sudden, days(s) (4) Location: LLQ, L flank Radiation: LLQ, L flank Migration to: no migration Severity: moderate Severity scale (0 -10): 6 Quality: cramping, aching Consistency: intermittent Improves With: nothing Worsens With: nothing Associated Symptoms: denies other symptoms, nausea, vomiting, melena, anorexia. denies: diarrhea, fever, chills, dysuria, hematemesis, hematochezia, hematuria, syncope, other - Related Data LMP Date: 08/01/21 Previous Rx's Medication Instructions Recorded Last Taken Type HYDROcodone/APAP 5-325 [[place] 1 each PO Q6HR PRN #8 tablet 04/10/20 Unknown Rx 5/325] Sulfamethoxazole/Trimethoprim 1 each PO BID #14 tablet 04/10/20 Unknown Rx [Bactrim DS TAB] Amoxicillin [Trimox CAP] 500 mg PO Q8H #30 capsule 07/07/20 Unknown Rx Benzonatate [Tessalon Perles] 100 mg PO Q8HR #30 capsule 07/07/20 Unknown Rx Ibuprofen [Motrin] 600 mg PO Q8H PRN #30 tablet 07/07/20 Unknown Rx methylPREDNISolone [Medrol 4MG 4 mg PO DAILY #21 tab.ds.pk 07/07/20 Unknown Rx DOSEPAK (21 tabs)] Butalb/Acetamin/Caff 50-325-40 1 - 2 tab PO Q6HR PRN #12 tab 07/19/20 Unknown Rx [Fioricet 50-325-40] Metoclopramide [Reglan] 10 mg PO ACHS PRN #30 tablet 07/19/20 Unknown Rx diphenhydrAMINE [Benadryl CAP] 25 mg PO Q8HR PRN #30 capsule 07/19/20 Unknown Rx Cyclobenzaprine HCl [Flexeril 5 MG 10 mg PO TID PRN #30 tab 12/18/20 Unknown Rx TAB] Menthol/Camphor [Reva Lenore 1 applicatio TP QID PRN #1 tube 12/18/20 Unknown Rx Ointment] Naproxen 500 mg PO BID PRN #30 tablet 12/18/20 Unknown Rx Benzonatate [Tessalon Perles] 100 mg PO Q8HR #20 capsule 04/10/21 Unknown Rx predniSONE [Deltasone] 50 mg PO QDAY #5 tab 04/10/21 Unknown Rx Albuterol Mdi (or & Nicu Only) 2 puff IH QID PRN #1 inhalation 04/26/21 Unknown Rx [ProAir HFA Inhaler] Ondansetron [Zofran Odt] 4 mg PO Q8HR PRN #15 tab.rapdis 04/26/21 Unknown Rx Dicyclomine [Bentyl] 20 mg PO Q6H PRN #30 tablet 08/01/21 Unknown Rx Famotidine [Pepcid] 20 mg PO BID #60 tablet 08/01/21 Unknown Rx Ondansetron [Zofran Odt] 4 mg PO Q6HR PRN #20 tab.rapdis 08/01/21 Unknown Rx Allergies Allergy/AdvReac Type Severity Reaction Status Date / Time No Known Allergies Allergy Verified 04/10/21 04:30 ED Review of Systems ROS: Stated complaint: STOMACH PAIN BLACK STOOL VOMITING Other details as noted in HPI Constitutional: denies: chills, fever Eyes: denies: eye pain, eye discharge, vision change ENT: denies: ear pain, throat pain Respiratory: denies: cough, shortness of breath, wheezing Cardiovascular: denies: chest pain, palpitations Endocrine: no symptoms reported Gastrointestinal: abdominal pain (LLQ), nausea, vomiting, melena. denies: diarrhea Genitourinary: denies: urgency, dysuria, frequency, hematuria, discharge, ab normal menses, dyspareunia Musculoskeletal: denies: back pain, joint swelling, arthralgia Skin: denies: rash, lesions Neurological: denies: headache, weakness, paresthesias Psychiatric: denies: anxiety, depression Hematological/Lymphatic: denies: easy bleeding, easy bruising ED Past Medical Hx - Past Medical History Previous Medical History?: Yes Hx Headaches / Migraines: Yes - Surgical History Past Surgical History?: No - Social History Smoking Status: Never Smoker Substance Use Type: None - Medications Home Medications: Home Medications Medication Instructions Recorded Confirmed Last Taken Type HYDROcodone/APAP 5-325 [[place] 1 each PO Q6HR PRN #8 tablet 04/10/20 Unknown Rx 5/325] Sulfamethoxazole/Trimethoprim 1 each PO BID #14 tablet 04/10/20 Unknown Rx [Bactrim DS TAB] Amoxicillin [Trimox CAP] 500 mg PO Q8H #30 capsule 07/07/20 Unknown Rx Benzonatate [Tessalon Perles] 100 mg PO Q8HR #30 capsule 07/07/20 Unknown Rx Ibuprofen [Motrin] 600 mg PO Q8H PRN #30 tablet 07/07/20 Unknown Rx methylPREDNISolone [Medrol 4MG 4 mg PO DAILY #21 tab.ds.pk 07/07/20 Unknown Rx DOSEPAK (21 tabs)] Butalb/Acetamin/Caff 50-325-40 1 - 2 tab PO Q6HR PRN #12 tab 07/19/20 Unknown Rx [Fioricet 50-325-40] Metoclopramide [Reglan] 10 mg PO ACHS PRN #30 tablet 07/19/20 Unknown Rx diphenhydrAMINE [Benadryl CAP] 25 mg PO Q8HR PRN #30 capsule 07/19/20 Unknown Rx Cyclobenzaprine HCl [Flexeril 5 MG 10 mg PO TID PRN #30 tab 12/18/20 Unknown Rx TAB] Menthol/Camphor [Reva Lenore 1 applicatio TP QID PRN #1 tube 12/18/20 Unknown Rx Ointment] Naproxen 500 mg PO BID PRN #30 tablet 12/18/20 Unknown Rx Benzonatate [Tessalon Perles] 100 mg PO Q8HR #20 capsule 04/10/21 Unknown Rx predniSONE [Deltasone] 50 mg PO QDAY #5 tab 04/10/21 Unknown Rx Albuterol Mdi (or & Nicu Only) 2 puff IH QID PRN #1 inhalation 04/26/21 Unknown Rx [ProAir HFA Inhaler] Ondansetron [Zofran Odt] 4 mg PO Q8HR PRN #15 tab.rapdis 04/26/21 Unknown Rx Dicyclomine [Bentyl] 20 mg PO Q6H PRN #30 tablet 08/01/21 Unknown Rx Famotidine [Pepcid] 20 mg PO BID #60 tablet 08/01/21 Unknown Rx Ondansetron [Zofran Odt] 4 mg PO Q6HR PRN #20 tab.rapdis 08/01/21 Unknown Rx ED Physical Exam - General Limitations: No Limitations General appearance: alert, in no apparent distress - Head Head exam: Present: atraumatic, normocephalic, normal inspection - Eye Eye exam: Present: normal appearance, PERRL, EOMI Pupils: Present: normal accommodation - ENT ENT exam: Present: normal exam, normal orophraynx, mucous membranes moist, TM's normal bilaterally, normal external ear exam - Neck Neck exam: Present: normal inspection, full ROM - Respiratory Respiratory exam: Present: normal lung sounds bilaterally. Absent: respiratory distress, wheezes, rales, rhonchi, chest wall tenderness, accessory muscle use, prolonged expiratory - Cardiovascular Cardiovascular Exam: Present: regular rate, normal rhythm, normal heart sounds. Absent: systolic murmur, diastolic murmur, rubs, gallop - GI/Abdominal GI/Abdominal exam: Present: soft, tenderness (Palpable mild left lower quadrant and left flank tenderness), normal bowel sounds. Absent: guarding, rebound, hyperactive bowel sounds - Bi-manual exam: Present: other (Pelvic exam deferred at this time) - Extremities Exam Extremities exam: Present: normal inspection, full ROM, normal capillary refill - Back Exam Back exam: Present: normal inspection, full ROM. Absent: tenderness, CVA tenderness (R), CVA tenderness (L), muscle spasm, paraspinal tenderness - Neurological Exam Neurological exam: Present: alert, oriented X3, CN II-XII intact, normal gait, reflexes normal - Psychiatric Psychiatric exam: Present: normal affect, normal mood - Skin Skin exam: Present: warm, dry, intact, normal color. Absent: rash ED Medical Decision Making - Lab Data Result diagrams: 08/01/21 00:02 08/01/21 00:02 - Radiology Data Radiology results: report reviewed, image reviewed - Medical Decision Making This is a 35-year-old -[place] female with no past medical history who presents to the ED with complaint of acute onset persistent left lower quadrant abdominal pain, nausea, vomiting and melena for the last 4 days. Patient states that the pain is mild but constant in the left lower quadrant area. Patient states that she has been taking with Pepto-Bismol for the pain with no relief. In the ED, patient is alert and oriented x3 and is not in any distress. Patient is hemodynamically stable. Patient was treated for pain in the ED and also given antiemetics and normal saline 1 L IV bolus x1. Lab test results were reviewed and are all nonactionable. Abdomen pelvis CT scan with contrast showed no acute abnormalities. On reevaluation, patient's pain is well controlled medications. Patient will discharge home on pain medications and given a referral to the GI physician Radha House for follow-up for possible colonoscopy. Patient was advised to contact Dr. Radha House's office first thing in the morning on Sunday, August 01, 2021 to schedule a follow-up appointment. Patient is advised return to the ED immediately if symptoms get worse. - Differential Diagnosis Kidney stones; Diverticulitis; Colitis; Constipation; ; UTI Critical care attestation.: If time is entered above; I have spent that time in minutes in the direct care of this critically ill patient, excluding procedure time. ED Disposition Clinical Impression: Acute abdominal pain in left lower quadrant, Nausea and vomiting in adult patient Disposition: HOME / SELF CARE / HOMELESS Is pt being admited?: No Does the pt Need Aspirin: No Condition: Stable Instructions: Abdominal Pain (ED), Flank Pain, Adult, [id number], Abdominal Pain, Adult, [id number], Nausea and Vomiting, Adult, [id number] Additional Instructions: All lab test results were reviewed and are all nonactionable. Therefore take pain medication as advised, drink plenty of fluids and follow-up with the GI physician Dr. Radha House for further evaluation and possible colonoscopy. Contact Dr. Radha House's office first thing in the morning on Sunday, August 01, 2021 to schedule a follow-up appointment. Return to the ED immediately if symptoms get worse. Prescriptions: Dicyclomine [Bentyl] 20 mg PO Q6H PRN #30 tablet PRN Reason: Abdominal pain Famotidine [Pepcid] 20 mg PO BID #60 tablet Ondansetron [Zofran Odt] 4 mg PO Q6HR PRN #20 tab.rapdis PRN Reason: Nausea Referrals: RADHA HOUSE MD [Staff Physician] - JERO Forms: Work/School Release Form(ED) Time of Disposition: 03:26 Print Language: GUYANESE
[2021-08-01] MEDS ORDERED: ONDANSETRON 4 MG/2 ML INJ IV ONE (03:27)
[2021-08-01] MEDS ORDERED: DICYCLOMINE 20 MG TAB PO ONE (03:27)
[2021-08-01] MEDS ORDERED: KETOROLAC 30 MG/1 ML INJ IV ONE (03:27)
[2021-08-01] MEDS ORDERED: DICYCLOMINE 10 MG CAP ONE (03:50)
[2021-08-01 04:17] VITALS: BP 117/62
== END 2021-08-01 04:24 | disposition home or self-care (01) ==
LOC: ED 22:35
DX: R10.32 Left lower quadrant pain (principal); R11.2 Nausea with vomiting, unspecified
CPT/HCPCS: 36415; 74177; 80053; 81001; 83690; 84703; 85025; 96361; 96374; 96375; 96376; 99284; J1885; J2270; J2405; J7030; Q9967

== ENCOUNTER 2022-03-12 04:14 | Emergency (ER) | payer MEDICAID ==
[2022-03-12] MEDS ORDERED: KETOROLAC 60 MG/2 ML INJ IM ONE (10:38)
[2022-03-12] MEDS ORDERED: predniSONE 20 MG TAB PO ONE (10:38)
[2022-03-12] MEDS ORDERED: CYCLOBENZAPRINE 10 MG TAB PO ONE (10:38)
--- NOTE | 2022-03-12 10:45 | Emergency Department Report ---
ED Neck Pain/Injury HPI - General Chief Complaint: Neck Pain/Injury Stated Complaint: RT SIDE PAIN/NECK BACK /EAR Time Seen by Provider: 03/12/22 10:01 Mode of arrival: Ambulatory Limitations: No Limitations - History of Present Illness Initial Comments: This is a 36-year-old female nontoxic, well nourished in appearance, no acute signs of distress presents to the ED with c/o of right upper back pain x several days. Patient stated that the past 2 days she was heavy lifting prior to pain and developed pains. Patient denies any injuries or trauma. Denies any bladder or bowel instability. Patient denies any urinary symptoms. Denies any fever, chills, nausea, vomiting, headache, stiff neck, chest pain or shortness of breath. Patient denies any numbness or tingling. Denies any allergies. Denies significant past medical history. MD Complaint: upper back pain -: days(s) Severity: mild Severity scale (0 -10): 8 Quality: aching Consistency: intermittent Improves With: immobilization Worsens With: movement of neck Associated Symptoms: none. denies: headache, fever, numbness, weakness, vertigo, difficulty walking, swollen glands, difficulty swallowing, nausea, vomiting Treatments Prior to Arrival: none - Related Data Previous Rx's Medication Instructions Recorded Last Taken Type Cyclobenzaprine [Flexeril] 10 mg PO QHS PRN #10 tab 03/12/22 Unknown Rx Naproxen 500 mg PO Q12H PRN #12 tab 03/12/22 Unknown Rx Allergies Allergy/AdvReac Type Severity Reaction Status Date / Time No Known Allergies Allergy Verified 03/12/22 10:08 ED Review of Systems ROS: Stated complaint: RT SIDE PAIN/NECK BACK /EAR Other details as noted in HPI Comment: All other systems reviewed and negative Constitutional: denies: chills, fever Eyes: denies: eye pain, eye discharge, vision change ENT: denies: ear pain, throat pain Respiratory: denies: cough, shortness of breath, wheezing Cardiovascular: denies: chest pain, palpitations Endocrine: no symptoms reported Gastrointestinal: denies: abdominal pain, nausea, diarrhea Genitourinary: denies: urgency, dysuria, discharge Musculoskeletal: denies: back pain, joint swelling, arthralgia Skin: denies: rash, lesions Neurological: denies: headache, weakness, paresthesias Psychiatric: denies: anxiety, depression Hematological/Lymphatic: denies: easy bleeding, easy bruising ED Past Medical Hx - Past Medical History Hx Headaches / Migraines: Yes - Social History Smoking Status: Former Smoker - Medications Home Medications: Home Medications Medication Instructions Recorded Confirmed Last Taken Type Cyclobenzaprine [Flexeril] 10 mg PO QHS PRN #10 tab 03/12/22 Unknown Rx Naproxen 500 mg PO Q12H PRN #12 tab 03/12/22 Unknown Rx ED Physical Exam - General Limitations: No Limitations General appearance: alert, in no apparent distress - Head Head exam: Present: atraumatic, normocephalic - Eye Eye exam: Present: normal appearance - Neck Neck exam: Present: normal inspection, full ROM. Absent: lymphadenopathy - Respiratory Respiratory exam: Present: normal lung sounds bilaterally. Absent: respiratory distress, wheezes, rales, rhonchi, stridor, chest wall tenderness, accessory muscle use, decreased breath sounds, prolonged expiratory - Cardiovascular Cardiovascular Exam: Present: regular rate, normal rhythm, normal heart sounds. Absent: bradycardia, tachycardia, irregular rhythm, systolic murmur, diastolic murmur, rubs, gallop - GI/Abdominal GI/Abdominal exam: Present: soft. Absent: distended, tenderness - Extremities Exam Extremities exam: Present: normal inspection, full ROM, normal capillary refill. Absent: tenderness - Back Exam Back exam: Present: normal inspection, full ROM, paraspinal tenderness (right cervical paraspinal). Absent: tenderness, CVA tenderness (R), CVA tenderness (L), muscle spasm, vertebral tenderness, rash noted - Expanded Back Exam Expanded Back exam: Absent: saddle anesthesia Back exam: Negative Straight Leg Raising: Left, Right - Neurological Exam Neurological exam: Present: alert, oriented X3, normal gait - Psychiatric Psychiatric exam: Present: normal affect, normal mood - Skin Skin exam: Present: warm, dry, intact, normal color. Absent: rash ED Course Vital Signs 03/12/22 03/12/22 03/12/22 05:25 10:10 10:49 Temperature 98.9 F Pulse Rate 95 H Respiratory 16 16 16 Rate Blood Pressure 135/74 [Right] O2 Sat by Pulse 99 98 Oximetry - Reevaluation(s) Reevaluation #1: 03/12/22 10:46 Patient is speaking in full sentences with no signs of distress noted. ED Medical Decision Making - Medical Decision Making This is a 36-year-old female that presents with neck muscle strain. Patient is stable was examined by me. There is no spinal tenderness. There is no cauda equina syndrome during examination. No bladder or bowel instability. Patient received Toradol 60 mg IM, prednisone, and flexeril in the ED which stated that her symptoms has resolved and subsided. Patient stated that her family member will drive her home after discharge due to possible drowsiness of Flexeril. Patient is discharged with muscle relaxant and naproxen. Patient was instructed not to operate any machinery while taking muscle relaxant as they cause her drowsiness. Patient was referred to Follow-up with a primary care doctor in 3-5 days or if symptoms worsen and continue return to emergency room as soon as possible. At time of discharge, the patient does not seem toxic or ill in appearance. No acute signs of distress noted. Patient agrees to discharge treatment plan of care. No further questions noted by the patient. This chart is dictated with using [employer] Critical care attestation.: If time is entered above; I have spent that time in minutes in the direct care of this critically ill patient, excluding procedure time. ED Disposition Clinical Impression: Neck muscle strain Qualifiers: Encounter type: initial encounter Qualified Code(s): S16.1XXA - Strain of muscle, fascia and tendon at neck level, initial encounter Disposition: 01 HOME / SELF CARE / HOMELESS Is pt being admited?: No Does the pt Need Aspirin: No Condition: Stable Instructions: Muscle Strain, [id number], Cyclobenzaprine tablets Additional Instructions: Follow-up with your primary care doctor in 3-5 days or if symptoms worsen such as bladder or bowel stability, chest pain, short of breath, numbness or tingling sensation in extremities, headache, dizziness, visual changes, nausea vomiting, or abdominal pain, return back to emergency room as was possible. Take naproxen and Flexeril as prescribed. Do not operate heavy machinery while taking Flexeril due to sedation Prescriptions: Cyclobenzaprine [Flexeril] 10 mg PO QHS PRN #10 tab PRN Reason: Muscle Spasm Naproxen 500 mg PO Q12H PRN #12 tab PRN Reason: Pain , Severe (7-10) Referrals: PRIMARY CARE, [Primary Care Provider] - 3-5 Days CHARISMA REA MD [Staff Physician] - 3-5 Days Time of Disposition: 11:50
[2022-03-12 13:15] VITALS: BP 128/63
== END 2022-03-12 13:15 | disposition home or self-care (01) ==
LOC: ED 04:14
DX: S16.1XXA Strain of muscle, fascia and tendon at neck level, initial encounter (principal); Z87.891 Personal history of nicotine dependence; X58.XXXA Exposure to other specified factors, initial encounter; Y93.89 Activity, other specified; Y92.89 Other specified places as the place of occurrence of the external cause; Y99.8 Other external cause status
CPT/HCPCS: 96372; 99282; J1885